=== PATIENT | female | born 1985 | race American Indian/Alaskan Native ===

== ENCOUNTER 2017-08-14 12:08 | Emergency (ER) | payer MEDICAID ==
[2017-08-14 14:06] VITALS: TEMP 98.2; O2SAT 98
[2017-08-14] MEDS ORDERED: Naproxen 550 mg Tab PO STA (15:48)
[2017-08-14] MEDS ORDERED: Naproxen 550 mg Tab PO ONE (15:55)
--- NOTE | 2017-08-14 17:03 | C.PDOC ---
History Of Present Illness Pt has FB sensation in her throat. However she denies swallow a bone or anything specific. Time Seen by Provider: 08/14/17 15:09 Chief Complaint (Nursing): Dental Pain History Per: Patient, Family Onset/Duration Of Symptoms: Days (about 2 weeks) Current Symptoms Are (Timing): Still Present Severity: Moderate Past Medical History Reviewed: Historical Data, Nursing Documentation, Vital Signs Vital Signs: Last Vital Signs Temp 98.2 F 08/14/17 14:00 Pulse 87 08/14/17 14:00 Resp 16 08/14/17 14:00 BP 111/72 08/14/17 14:00 Pulse Ox 98 08/14/17 14:00 - Medical History PMH: No Chronic Diseases Family History: States: Unknown Family Hx - Social History Hx Alcohol Use: Yes Hx Substance Use: Yes Review Of Systems Except As Marked, All Systems Reviewed And Found Negative. Constitutional: Negative for: Fever, Weakness ENT: Positive for: Mouth Pain, Throat Pain Cardiovascular: Negative for: Chest Pain Respiratory: Positive for: Cough. Negative for: Shortness of Breath, Hemoptysis Gastrointestinal: Negative for: Vomiting, Abdominal Pain Skin: Negative for: Rash Neurological: Negative for: Weakness, Numbness, Change in Speech Physical Exam - Physical Exam Appears: Non-toxic, No Acute Distress Skin: Normal Color, Warm, Dry, No Rash Head: Atraumatic, Normacephalic Eye(s): bilateral: Normal Inspection, PERRL, EOMI Oral Mucosa: Moist, No Drooling, No Trismus Tongue: Normal Appearing Lips: Normal Appearing Gingiva: No Abscess, Other (Lesion on inner aspect of anterior lower gingiva) Throat: Normal Neck: Normal ROM, Supple Lymphatic: No Adenopathy Cardiovascular: Rhythm Regular Respiratory: Normal Breath Sounds, No Accessory Muscle Use Gastrointestinal/Abdominal: Soft, No Tenderness Extremity: Normal ROM Neurological/Psych: Oriented x3, Normal Speech, Normal Motor, Normal Sensation ED Course And Treatment - Laboratory Results Interpretation Of Abnormal: Rapid strep negative. O2 Sat by Pulse Oximetry: 98 Pulse Ox Interpretation: Normal - Other Rad Soft tissue neck x-rays X-Ray: Interpreted by Me, Viewed By Me Interpretation: No FB seen. Disposition Counseled Patient/Family Regarding: Studies Performed, Diagnosis, Need For Followup, Rx Given - Disposition Referrals: James Mcmillan MD [Staff Provider] - Disposition: HOME/ ROUTINE Disposition Time: 17:05 Condition: STABLE Additional Instructions: Follow up with an ENT specialist this week for further evaluation and treatment. Return to the ER if you develop fever, trouble breathing or swallowing, worsening of symptoms or if you have any other concerns. Prescriptions: Naproxen [Naprosyn] 1 tab PO BID PRN #20 tab PRN Reason: Pain Forms: [facility] ([place]), General Discharge Instructions - Clinical Impression Clinical Impression: Foreign body sensation in throat
[2017-08-14 17:12] VITALS: BP 112/78; PULSE 82; RESP 18
--- NOTE | 2017-08-15 08:14 | RAD ---
PROCEDURE: Radiographs of the neck (soft tissue). HISTORY: FB sensation COMPARISON: None. TECHNIQUE: Frontal and Lateral Radiographs of the neck, optimized for soft tissue visualization. FINDINGS: SOFT TISSUES: There is normal prevertebral soft tissue thickness. No radiopaque foreign body seen. There airways are patent. CERVICAL SPINE: Grossly unremarkable. OTHER FINDINGS: None. IMPRESSION: No radiographic evidence for radiopaque foreign body.
== END 2017-08-14 17:18 | disposition home or self-care (01) ==
LOC: C.ER 12:08
DX: R09.89 Other specified symptoms and signs involving the circulatory and respiratory systems (principal)